=== PATIENT | male | born 1965 | race Caucasian/White ===

== ENCOUNTER 2017-01-14 13:41 | Emergency (ER) | payer OTHER ==
[~2017-01-14] VITALS: Ht 167.6 cm; Wt 81.6 kg
[~2017-01-14 13:41] MED LIST: POLYTRIM O200 GTT/BO OPH
[2017-01-14 13:56] VITALS: BP 125/76
[2017-01-14] MEDS ORDERED: AUGMENTIN 875-1 EACH PO (15:12)
--- NOTE | 2017-01-14 15:13 | ED GENERAL ADULT ---
History of Present Illness General Chief Complaint: Eye Problems Stated Complaint: LFT EYE SLIGHT SWELLING NO KNOWN INJURY Source: patient Exam Limitations: no limitations Vital Signs & Intake/Output Vital Signs & Intake/Output Vital Signs Date Time Temp Pulse Resp B/P Pulse O2 O2 Flow FiO2 Ox Delivery Rate 01/14 1356 96.7 86 18 125/76 99 Room Air Allergies Coded Allergies: NO KNOWN ALLERGIES (11/20/15) Reconcile Medications Amoxicillin/Potassium Clav (Augmentin 875-125 Tablet) 875 MG-125 MG TABLET 1 TAB PO BID CELLULITIS Polytrim (Polytrim Eye Drops) 200 GTT/BOT GTT 1 GTT OPH Q4HR conjunctivitis Triage Note: PT TO ED FOR L EYE SWELLING FOR TWO DAYS, UNDERNEATH L EYE APPEARS VERY SLIGHTLY SWOLLEN. DENIES VISION CHANGES, NO INJURY. Triage Nurses Notes Reviewed? yes HPI: Patient is a 51-year-old male presents complaining of redness and mild swelling underneath his left eye. Symptoms 2 days. Mild irritation to the area that worsens with palpation. Patient reports associated nasal congestion for approximately one week. Denies blurred vision, eye pain, fevers, chills. (KEYONA PRAJAPATI) Past History Travel History Traveled to [place] past 21 day No Medical History Any Pertinent Medical History? 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 No (KEYONA PRAJAPATI) Review of Systems Review of Systems Constitutional: Denies: chills, fever. EENTM: Reports: nasal congestion. Denies: visual changes, eye pain, eye drainage. Respiratory: Reports: no symptoms. Cardiovascular: Reports: no symptoms. Musculoskeletal: Reports: no symptoms. Skin: Reports: see HPI. Neurological/Psychological: Denies: headache. Hematologic/Endocrine: Reports: no symptoms. Immunologic/Allergic: Reports: no symptoms. (KEYONA PRAJAPATI) Physical Exam Physical Exam General Appearance: well developed/nourished, alert, awake Head: 2-3 cm of mild erythema inferior to left lower eyelid. Mild tenderness. No visible stye. No fluctuance or induration. No sinus tenderness Eyes: Bilateral: normal appearance, PERRL, EOMI. Ears, Nose, Throat: hearing grossly normal Neck: normal inspection, supple, full range of motion Respiratory: no respiratory distress Back: normal range of motion Extremities: normal inspection, normal capillary refill, normal range of motion Neurologic/Psych: no motor/sensory deficits, awake, alert, oriented x 3, normal gait, normal mood/affect Skin: see head exam Lymphatic: no anterior cervical nghia Core Measures ACS in differential dx? No CVA/TIA Diagnosis: No Severe Sepsis Present: No Septic Shock Present: No (KEYONA PRAJAPATI) Progress Differential Diagnoses I considered the following diagnoses in my evaluation of the patient: Stye, facial cellulitis/preseptal cellulitis, orbital cellulitis, sinusitis Plan of Care: Patient afebrile, nontoxic appearing. No eye pain, blurred vision, drainage from the eye. Suspect mild facial cellulitis. Patient instructed to return to the ER if fevers, eye pain, blurred vision or worsening of symptoms. Initial ED EKG: none (KEYONA PRAJAPATI) Departure Departure Time of Disposition: 1510 Disposition: HOME OR SELF CARE Condition: Stable Clinical Impression Primary Impression: Facial cellulitis Referrals: PATIENT HAS NO PRIMARY CARE DR (PCP/Family) Additional Instructions: Warm compresses to the area for 10 minutes 4-5 times a day. Return to the emergency Department immediately if he developed fevers, redness spreading, increasing pain, eye pain, or worsening symptoms. Departure Forms: Customer Survey General Discharge Information Prescriptions: Current Visit Scripts Amoxicillin/Potassium Clav (Augmentin 875-125 Tablet) 1 TAB PO BID #14 TAB (KEYONA PRAJAPATI) PA/BAR MANAGER Co-Sign Statement Statement: ED Attending supervision documentation- [] I saw and evaluated the patient. I have also reviewed all the pertinent lab results and diagnostic results. I agree with the findings and the plan of care as documented in the PA's/BAR MANAGER's documentation. [X] I have reviewed the ED Record and agree with the PA's/BAR MANAGER's documentation. [] Additions or exceptions (if any) to the PAs/BAR MANAGER's note and plan are summarized below: [] (MINNIE DE LA VEGA,MARTA Polanco) Critical Care Note Critical Care Note Critical Care Time: non-applicable (LUCA LONG,KEYONA)
== END 2017-01-14 15:21 ==
LOC: ERH 13:41
DX: L03.211 Cellulitis of face (principal)

== ENCOUNTER 2017-01-22 10:10 | Emergency (ER) | payer OTHER ==
[~2017-01-22] VITALS: Ht 167.6 cm; Wt 81.6 kg
[~2017-01-22 10:10] MED LIST changes: +AUGMENTIN 875-1 EACH PO
--- NOTE | 2017-01-22 12:04 | ED GENERAL ADULT ---
History of Present Illness General Chief Complaint: Eye Problems Stated Complaint: SWOLLEN L EYE. HERE ON 01/15/17 FOR THE SAME Source: patient Exam Limitations: no limitations Vital Signs & Intake/Output Vital Signs & Intake/Output Vital Signs Date Time Temp Pulse Resp B/P Pulse O2 O2 Flow FiO2 Ox Delivery Rate 01/22 1245 98.6 76 18 124/84 98 Room Air 01/22 1024 97.4 78 20 96/61 97 Room Air Allergies Coded Allergies: No Known Allergies (01/22/17) Reconcile Medications No Known Home Medications Triage Note: TRIAGE: PT TO ER C/C SWOLLEN L EYE, SEEN HERE FOR SAME LAST WEEK. ADVISED TO RETURN IF S/S NOT IMPROVED. STATES NOT WORSE BUT IT'S NOT BETTER. PT HAS PHYSICAL WITH PCP LATER TODAY. Triage Nurses Notes Reviewed? yes Onset: Abrupt Duration: week(s): Timing: recent history HPI: 01/22/17 12:38 PM This is a 51-year-old man presents to the emergency department for left eye puffiness. He says he was seen in the ED approximately 7 days ago and was put on antibiotics. He said that he continues to have intermittent episodes of the left lower eyelid margin to be irritated and it interferes with his vision. He has no complaints of visual disturbance now in the ED had, no complaints intrinsic to the left eye itself. No history of foreign body or other complaints. The onset of the symptoms was abrupt, the duration has been 7 days, the severity is significant as his symptoms required him to come to the emergency department for care. On physical exam his pupils are reactive to light and his exam is entirely normal. There may be a question of some minimal inflammation to the lower lid margin. He was treated with erythromycin ophthalmic ointment and instructed to follow-up with the peace officer in the next 48 hours. Past History Travel History Traveled to [place] past 21 day No Medical History Any Pertinent Medical History? 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 No Review of Systems Review of Systems Constitutional: Denies: fever. EENTM: Reports: see HPI. Denies: visual changes. Respiratory: Reports: no symptoms. Cardiovascular: Reports: no symptoms. GI: Reports: no symptoms. Genitourinary: Reports: no symptoms. Musculoskeletal: Reports: no symptoms. Skin: Reports: no symptoms. Neurological/Psychological: Denies: headache. Hematologic/Endocrine: Reports: no symptoms. Physical Exam Physical Exam General Appearance: well developed/nourished, alert, awake, anxious, mild distress Head: atraumatic Eyes: Bilateral: normal appearance, PERRL, EOMI. Ears, Nose, Throat: normal pharynx, normal ENT inspection Neck: normal inspection, supple Respiratory: normal breath sounds, chest non-tender, no respiratory distress Cardiovascular: regular rate/rhythm Back: normal range of motion Extremities: normal inspection Neurologic/Psych: no motor/sensory deficits, awake, alert, oriented x 3, normal gait Skin: intact, normal color, warm/dry Comments: Exam is unremarkable other than some minimal inflammation, to the left lower lid margin. I don't appreciate a true stye. Core Measures ACS in differential dx? No CVA/TIA Diagnosis: No Severe Sepsis Present: No Septic Shock Present: No Progress Differential Diagnoses I considered the following diagnoses in my evaluation of the patient: [Stye, foreign body, conjunctivitis, blepharitis] Plan of Care: Follow-up with the peace officer in 48 hours. Initial ED EKG: none Departure Departure Disposition: HOME OR SELF CARE Condition: Stable Clinical Impression Primary Impression: Blepharitis Referrals: PATIENT HAS NO PRIMARY CARE DR (PCP/Family) Departure Forms: Customer Survey General Discharge Information Prescriptions: Current Visit Scripts No Known Home Medications Critical Care Note Critical Care Note Critical Care Time: non-applicable
[2017-01-22 12:45] VITALS: BP 124/84
== END 2017-01-22 12:46 ==
LOC: ERH 10:10
DX: H01.005 Unspecified blepharitis left lower eyelid (principal)